=== PATIENT | female | born 1980 | race Caucasian/White ===

== ENCOUNTER 2018-12-29 04:07 | Inpatient (IN) | payer OTHER ==
[~2018-12-29] VITALS: Ht 162.6 cm; Wt 74.5 kg
[2018-12-29] MEDS ORDERED: OXYTOCIN 30U/ 0.9% NaCL 500ML 500 ML IV ONE (04:16)
[2018-12-29] MEDS ORDERED: LACTATED RINGERS 1,000 ML IV SCH ×2 (04:16→05:01)
[2018-12-29] MEDS ORDERED: D5%-LACTATED RINGERS 1,000 ML IV SCH (04:16)
[2018-12-29] MEDS ORDERED: OXYTOCIN 30U/ 0.9% NaCL 500ML 500 ML ONE ×2 (04:17→14:06)
[2018-12-29] MEDS ORDERED: LIDOCAINE 1%, 20ML ONE ×2 (04:17→04:18)
[2018-12-29] MEDS ORDERED: MISOPROSTOL 200 MCG TABLET ONE (04:17)
[2018-12-29] MEDS: FENTANYL/BUPIV./NS/PF 250 ML EPIDCONT SCH ×3 (04:18→15:41)
[2018-12-29] MEDS ORDERED: NEWBORN KIT ONE (04:18)
[2018-12-29] MEDS ORDERED: SODIUM CITRATE/CITRIC ACID 30 ML UDC PO PRN (04:30)
[2018-12-29] MEDS ORDERED: PLEASE ENTER ALLERGIES MC SCH (04:30)
[2018-12-29] MEDS ORDERED: SODIUM CHLORIDE FLUSH 10ML SYR IVF PRN (04:30)
[2018-12-29] MEDS ORDERED: PENICILLIN GK 5,000,000 UNITS in DEXTROSE 5% 100 ML IVPB ONE (04:30)
[2018-12-29] MEDS ORDERED: FENTANYL PF 100 MCG/2ML IVPush PRN (04:30)
[2018-12-29] MEDS ORDERED: METOCLOPRAMIDE 5 MG/ML, 2ML IVPush PRN (04:30)
[2018-12-29] MEDS ORDERED: ONDANSETRON 2MG/ML, 2ML IVPush PRN (04:30)
[2018-12-29] MEDS ORDERED: TERBUTALINE 1 MG/ML, 1ML IVPush PRN (04:30)
[2018-12-29] MEDS ORDERED: CALCIUM CARBONATE 500 MG TAB.CHEW PO PRN ×2 (04:30→12:00)
[2018-12-29] MEDS ORDERED: FENTANYL PF 100 MCG/2ML IV PRN (04:30)
[2018-12-29] MEDS ORDERED: ALUMINUM/MAG/SIMETHICONE 30 ML UDC PO PRN (04:30)
[2018-12-29] MEDS ORDERED: FENTANYL PF 100 MCG/2ML ONE (04:34)
[2018-12-29 04:38] LABS: BASOPHILS # (AUTO) 0.01 x10^3/uL (0-0.1); BASOPHILS % (AUTO) 0 % (0-1); EOSINOPHILS # (AUTO) 0.01 x10^3/uL (0-0.4); EOSINOPHILS % (AUTO) 0 % (1-7); LYMPHOCYTES # (AUTO) 1.47 x10^3/uL (1-3.4); LYMPHOCYTES % (AUTO) 15 % (22-44); MD NO; MEAN CORPUSCULAR HEMOGLOBIN 31.6 pg (27.0-34.8); MEAN CORPUSCULAR HGB CONC 33.1 g/dL (32.4-35.8); MEAN CORPUSCULAR VOLUME 95.6 fL (80-100); MEAN PLATELET VOLUME 8.1 fL (7.4-10.4); MONOCYTES # (AUTO) 0.47 x10^3/uL (0.2-0.8); MONOCYTES % (AUTO) 5 % (2-9); NEUTROPHILS # (AUTO) 7.62 x10^3/uL (1.8-6.8); NEUTROPHILS % (AUTO) 80 % (42-75); PLATELET COUNT 195 x10^3/uL (130-400); RED BLOOD COUNT 4.13 x10^6/uL (3.82-5.3); RED CELL DISTRIBUTION WIDTH 13.5 % (9.6-15.2)
[2018-12-29] MEDS ORDERED: EPHEDRINE 50 MG/ML, 1ML IVPush PRN ×2 (05:00→05:30)
[2018-12-29] MEDS ORDERED: FENTANYL/BUPIV./NS/PF 250 ML EPIDCONT SCH ×2 (05:00→05:01)
[2018-12-29] MEDS ORDERED: LACTATED RINGERS 1,000 ML IVBOLUS PRN ×2 (05:00→05:30)
[2018-12-29] MEDS ORDERED: NALOXONE 0.4 MG/ML, 1ML IVPush PRN ×2 (05:00→05:30)
[2018-12-29] MEDS ORDERED: BUPIVACAINE 0.25% ONE (05:03)
[2018-12-29] MEDS ORDERED: ONDANSETRON 2MG/ML, 2ML ONE (05:56)
[2018-12-29] MEDS ORDERED: CALCIUM CARBONATE 500 MG TAB.CHEW ONE (07:39)
[2018-12-29] MEDS ORDERED: SODIUM CITRATE/CITRIC ACID 30 ML UDC ONE (09:02)
[2018-12-29] MEDS: PENICILLIN GK 2,500,000 UNITS in DEXTROSE 5% 100 ML IVPB SCH ×2 (09:45→15:32)
[2018-12-29] MEDS ORDERED: LIDOCAINE/MPF 2%-EPI 1:200K, 20 ML ONE (10:00)
[2018-12-29] MEDS ORDERED: ACETAMINOPHEN 325 MG TABLET PO PRN ×3 (12:00)
[2018-12-29] MEDS ORDERED: MAGNESIUM HYDROXIDE 8%, 30ML UDC PO PRN (12:00)
[2018-12-29] MEDS ORDERED: METOCLOPRAMIDE 5 MG/ML, 2ML IV PRN (12:00)
[2018-12-29] MEDS ORDERED: DIPH,PERTUSS(ACELL),TET VAC/PF NC IM-VACC PRN (12:00)
[2018-12-29] MEDS ORDERED: BISACODYL 10 MG SUPP PR PRN (12:00)
[2018-12-29] MEDS ORDERED: ONDANSETRON 2MG/ML, 2ML IV PRN (12:00)
[2018-12-29] MEDS ORDERED: CARBOPROST TROMETHAMINE 250 MCG/ML, 1ML IM PRN (12:00)
[2018-12-29] MEDS ORDERED: MEASLES,MUMPS&RUBELLA VACC/PF 0.5 ML SQ PRN (12:00)
[2018-12-29] MEDS ORDERED: MISOPROSTOL 200 MCG TABLET PR PRN (12:00)
[2018-12-29] MEDS ORDERED: METHYLERGONOVINE 0.2 MG/ML IM PRN (12:00)
[2018-12-29] MEDS ORDERED: GLYCERIN ADULT SUPP PR PRN (12:00)
[2018-12-29] MEDS ORDERED: OXYcodone/APAP 5/325MG TABLET PO PRN ×2 (12:00)
[2018-12-29] MEDS: LACTATED RINGERS 1,000 ML IV SCH ×2 (13:00→15:32)
[2018-12-29] MEDS: PRENATAL VIT/IRON/FA 1 EACH TABLET PO SCH (14:58)
[2018-12-29] MEDS: IBUPROFEN 600 MG TABLET PO PRN ×2 (14:58→21:28)
[2018-12-29] MEDS: DOCUSATE 100 MG CAPSULE PO PRN ×2 (14:59→21:28)
[2018-12-29] MEDS: OXYTOCIN 30U/ 0.9% NaCL 500ML 500 ML IV SCH ×2 (15:32→15:35)
[2018-12-29 20:00] VITALS: BP 99/57
[2018-12-29 21:18] LABS: BASOPHILS # (AUTO) 0.06 x10^3/uL (0-0.1); BASOPHILS % (AUTO) 1 % (0-1); EOSINOPHILS % (AUTO) 0 % (1-7); LYMPHOCYTES # (AUTO) 1.33 x10^3/uL (1-3.4); LYMPHOCYTES % (AUTO) 11 % (22-44); MD NO; MEAN CORPUSCULAR HEMOGLOBIN 32.9 pg (27.0-34.8); MEAN CORPUSCULAR HGB CONC 34.2 g/dL (32.4-35.8); MEAN PLATELET VOLUME 7.7 fL (7.4-10.4); MONOCYTES # (AUTO) 0.43 x10^3/uL (0.2-0.8); MONOCYTES % (AUTO) 4 % (2-9); NEUTROPHILS # (AUTO) 10.29 x10^3/uL (1.8-6.8); NEUTROPHILS % (AUTO) 85 % (42-75); PLATELET COUNT 162 x10^3/uL (130-400); RED BLOOD COUNT 3.25 x10^6/uL (3.82-5.3); RED CELL DISTRIBUTION WIDTH 13.6 % (9.6-15.2)
[2018-12-30] VITALS: BP 97/58
[2018-12-30 03:40] VITALS: BP 96/62
[2018-12-30] MEDS: IBUPROFEN 600 MG TABLET PO PRN ×3 (03:49→18:05)
[2018-12-30] MEDS: OXYTOCIN 30U/ 0.9% NaCL 500ML 500 ML IV SCH (07:41)
[2018-12-30 08:08] VITALS: BP 95/59
[2018-12-30] MEDS: DOCUSATE 100 MG CAPSULE PO PRN (11:05)
[2018-12-30 20:00] VITALS: BP 103/59
[2018-12-31] MEDS: IBUPROFEN 600 MG TABLET PO PRN ×2 (01:49→07:53)
[2018-12-31] MEDS ORDERED: IBUP-1222 PO (05:50)
[2018-12-31] MEDS: DOCUSATE 100 MG CAPSULE PO PRN (07:53)
[2018-12-31] MEDS: PRENATAL VIT/IRON/FA 1 EACH TABLET PO SCH (07:53)
[2018-12-31 08:00] VITALS: BP 107/71
== END 2018-12-31 10:30 | disposition home or self-care (01) | DRG 806 ==
LOC: LDOP 04:07 → LDIP 04:20 → 2NW 15:02
PROVIDERS: ADMIT Obstetrics & Gynecology Gynecology; ATTEND Obstetrics & Gynecology Gynecology
PROC: 10E0XZZ Delivery of Products of Conception, External Approach (ICD-10-PCS; principal; 2018-12-29)
PROC: 0HQ9XZZ Repair Perineum Skin, External Approach (ICD-10-PCS; 2018-12-29)
PROC: 3E0R3BZ Introduction of Anesthetic Agent into Spinal Canal, Percutaneous Approach (ICD-10-PCS; 2018-12-29)
PROC: 00HU33Z Insertion of Infusion Device into Spinal Canal, Percutaneous Approach (ICD-10-PCS; 2018-12-29)
DX: O69.81X0 Labor and delivery complicated by cord around neck, without compression, not applicable or unspecified (principal); O99.354 Diseases of the nervous system complicating childbirth; Z37.0 Single live birth; O99.824 Streptococcus B carrier state complicating childbirth; O70.0 First degree perineal laceration during delivery; Z3A.37 37 weeks gestation of pregnancy; Z90.49 Acquired absence of other specified parts of digestive tract; O99.344 Other mental disorders complicating childbirth; G43.909 Migraine, unspecified, not intractable, without status migrainosus; F32.9 Major depressive disorder, single episode, unspecified
CPT/HCPCS: 36415; 85025; 86850; 86900; G0378; J2405; J2540; J3010; J3490; J2590; J7120

== ENCOUNTER 2020-06-04 07:43 | Outpatient (CLI) | payer OTHER ==
[~2020-06-04 07:43] MED LIST: IBUP-1222 PO
== END 2020-06-04 23:59 | disposition home or self-care (01) ==
LOC: CFH 07:43
PROVIDERS: ATTEND Family Medicine
DX: Z12.31 Encounter for screening mammogram for malignant neoplasm of breast (principal); N64.89 Other specified disorders of breast
CPT/HCPCS: 77063; 77067